=== PATIENT | male | born 1970 | race Caucasian/White ===

== ENCOUNTER 2022-11-28 14:36 | Emergency (ER) | payer BC, OTHER ==
[2022-11-28] MEDS ORDERED: Acetaminophen/HYDROcodone 325-5 MG Tab PO ONE (14:37)
== END 2022-11-28 15:40 | disposition home or self-care (01) ==
LOC: FB.ED 14:36
DX: M54.42 Lumbago with sciatica, left side (principal); M54.16 Radiculopathy, lumbar region; Z88.0 Allergy status to penicillin
CPT/HCPCS: 99283; A9270